=== PATIENT | male | born 1995 | race Caucasian/White ===

== ENCOUNTER 2016-11-28 06:03 | Emergency (ER) | payer BC ==
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
== END 2016-11-28 06:22 | disposition disaster alternative care site (69) ==
LOC: GMED 06:03
DX: S80.212A Abrasion, left knee, initial encounter (principal); F17.210 Nicotine dependence, cigarettes, uncomplicated; Z90.89 Acquired absence of other organs; W21.07XA Struck by softball, initial encounter; Y93.64 Activity, baseball